=== PATIENT | female | born 1945 | race Caucasian/White ===

== ENCOUNTER → 2016-10-27 | Outpatient (CLI) | payer OTHER ==
[~2016-10-27] MED LIST: ABILIFY 5 MG TAB5 MG PO; ACETAZOLAMIDE250 M1 OR; ADVAIR 250-501 EACH IH; ALBUTEROL INH INH; ALBUTEROL PO; ALBUTEROL2.5 MG/0.1 IH; ALPRAZOLAM 0.50.5 M1 PO; AVELOX 400 MG400 MG PO; CALCIUM 600 +1 EAC1 PO; DUONEB 2.5-0.5 M3 ML IH; FISH OIL 1,2001 EAC4; HYDROCODONE PO; HYDROCODONE-AP1 EAC1 PO; IRON PO; LEVAQUIN 500 M500 MG PO; LEVAQUIN 750 M750 MG PO; LEVOTHROID PO; METFORMIN PO; MULTIPLE VITAM1 EAC3 PO; NEURONTIN 300300 M1 PO; NORCO 5-325 TA1 EACH PO; NOVOLOG100 UNIT/1 SQ; OMEPRAZOLE20 MG PO; PAROXETINE HCL40 MG PO; PREDNISONE 5 MG5 MG PO; PROAIR HFA8.5 GM INH; SIMVASTATIN PO; SIMVASTATIN40 MG PO; TRIAMTERENE-HC1 EAC1; TRIAMTERENE-HC1 EAC1 PO; TRIAMTERENE/HCT1 CA1; ZOFRAN ODT4 MG PO
== END ==
LOC: RAD 15:42
DX: R06.02 Shortness of breath (principal); J44.9 Chronic obstructive pulmonary disease, unspecified

== ENCOUNTER → 2017-10-28 | Outpatient (CLI) | payer OTHER | LOC: RAD 14:13 | DX: J44.9 Chronic obstructive pulmonary disease, unspecified (principal); K44.9 Diaphragmatic hernia without obstruction or gangrene ==

== ENCOUNTER → 2018-12-08 | Outpatient (CLI) | payer OTHER | LOC: CAT 15:21 | DX: M19.012 Primary osteoarthritis, left shoulder (principal); M25.712 Osteophyte, left shoulder ==

== ENCOUNTER 2019-12-05 11:03 | Inpatient (IN) | payer OTHER ==
[~2019-12-05] VITALS: Ht 152.4 cm; Wt 95.5 kg
[2019-12-05 11:05] VITALS: BP 144/97
[2019-12-05 11:47] LABS: BE(vivo) 2.1 mmol/L (-2 to +3); HCO3 27.5 mmol/L (22.0-26.0); PCO2 46.2 mmHg (35.0-45.0); PO2 63.6 mmHg (80.0-100.0); pH 7.393 (7.360-7.450); sO2 92.1 % (92.0-98.0)
[2019-12-05 12:34] LABS: ABSOLUTE NEUTROPHILS 5.9 thou/uL (1.4-8.2); BASOPHILS 0.7 % (0.0-2.0); EOSINOPHILS 3.2 % (0.0-3.0); HEMATOCRIT 38.4 % (37.0-47.0); HEMOGLOBIN 12.3 gm/dL (12.0-15.0); MCH 29.5 pg (26.0-34.0); MCHC 32.1 g/dL (28.0-37.0); MCV 91.8 fL (80.0-100.0); MONOCYTES 4.9 % (1.0-8.0); POLYS 81.2 % (36.0-66.0); RBC 4.18 mil/uL (4.20-5.00); RDW 13.6 % (10.5-14.5); WBC 7.9 thou/uL (4.0-11.0)
[2019-12-05 12:39] VITALS: BP 138/61
[2019-12-05 12:44] LABS: CALCIUM 9.9 mg/dL (8.5-10.1); CREATININE 0.8 mg/dL (0.6-1.0); POTASSIUM 3.8 mmol/L (3.5-5.1)
[2019-12-05 12:55] LABS: ALBUMIN 3.8 g/dL (3.4-5.0); TOTAL BILIRUBIN 0.6 mg/dL (<0.1-1.0); TOTAL PROTEIN 6.8 g/dL (6.4-8.2); TROPONIN-I 0.29 ng/mL (<0.06)
[2019-12-05 12:59] LABS: PLATELET COUNT 115 thou/uL (150-400); PLATELET ESTIMATE NORMAL
--- NOTE | 2019-12-05 14:19 | EKG ---
[facility] [place] [address] ELECTROCARDIOGRAM REPORT Name: JULIANO CARMICHAEL DINORA Room #: [facility]#: [id number] Admission: 12/05/19 Attend Phys: Discharge: Date of : 43 Report #: [id number] THIS REPORT FOR: cc: Chilo Gomez MD, Neal A. MD Couchonnal, Luis F. 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 : 1945 Requested By: Vee Martinez Order Number: [id number] MD: Jean Claude Hinton Measurements Intervals [place] Rate: 79 P: 69 [place]: 157 QRS: 64 QRSD: 85 T: 41 QT: 409 QTc: 469 Interpretive Statements Sinus rhythm Compared to ECG 07/12/2012 14:10:26 Myocardial infarct finding no longer present ST (T wave) deviation no longer present Possible ischemia no longer present Electronically Signed On 12-05-2019 14:18:39 CDT by Jean Claude Hinton [email or web address] <ELECTRONICALLY SIGNED> By: Jean Claude Hinton MD 12/05/19 1418 1136 1136 Jean Claude Hinton MD /EPI
[2019-12-05 14:42] LABS: HEMATOCRIT 38.8 % (37.0-47.0); HEMOGLOBIN 12.7 gm/dL (12.0-15.0); MCH 30.1 pg (26.0-34.0); MCHC 32.8 g/dL (28.0-37.0); MCV 91.8 fL (80.0-100.0); RBC 4.22 mil/uL (4.20-5.00); RDW 13.5 % (10.5-14.5); WBC 7.8 thou/uL (4.0-11.0)
[2019-12-05 15:43] VITALS: BP 161/76
[2019-12-05 15:51] LABS: INR 1.1; PROTIME 10.8 Seconds (9.3-11.4)
[2019-12-05] MEDS ORDERED: LIPITOR40 MG PO (16:15)
[2019-12-05] MEDS ORDERED: UNITHROID25 MCG PO (16:17)
[2019-12-05] MEDS ORDERED: STIOLTO RESPIMAT4 GM INH (16:18)
[2019-12-05] MEDS ORDERED: OMEPRAZOLE20 M2 PO (16:18)
[2019-12-05 18:45] VITALS: BP 145/62
[2019-12-05 19:00] VITALS: BP 188/70
[2019-12-05 23:47] VITALS: BP 144/52
--- NOTE | 2019-12-06 00:30 | NUR ---
ADMITTED TO UNIT. NO SIGNS OF DISTRESS OR COMPLAINTS. ON HEPARIN DRIP PTT DRAWN AT 1800 CRITICAL LEVEL OF GREATER THAN 198.4 PROVIDER DARLING NOTIFIED. HEPARIN PROTOCOL FOLLOWED. ALL VITAL SIGNS WNL. WILL CONTINUE TO MONITOR
--- NOTE | 2019-12-06 01:45 | NUR ---
PT RESTING. PTT REDRAW AT 0000. NEW VALUE THERAPEUTIC (SEE CHART). NEXT REDRAW WILL BE AT 0600. WILL CONTINUE TO MONITOR.
[2019-12-06 03:30] VITALS: BP 123/56
--- NOTE | 2019-12-06 06:49 | NUR ---
PT RESTING IN BED COMFORTABLE. ELEVATED BP AT BEGINNING OF SHIFT HOWEVER IT RESOLVED. NO COMPLAINT OF DISCOMFORT OR PAIN. ON HEPARIN DRIP PROTOCOL FOLLOWED. VITAL SIGN WNL.
[2019-12-06 07:39] VITALS: BP 125/70
--- NOTE | 2019-12-06 09:41 | 2DMMODE ---
[facility] [address] [place] [address] 2 D/M-MODE ECHOCARDIOGRAM Name: JULIANO CARMICHAEL Room #: 356-P ADM IN M.R.#: [id number] Admission: 12/05/19 Attend Phys: Yvan Faulkner MD Discharge: Date of : 43 Report #: [id number] THIS REPORT FOR: cc: Chilo Gomez MD, Neal A. MD Lammoglia, Francisco J. MD ~ APPROVED REPORT Study performed: 12/06/2019 07:46:17 EXAM: Comprehensive 2D, Doppler, and color-flow Echocardiogram Patient Location: Bedside Room #: 356 Status: routine BSA: 1.90 HR: 87 bpm BP: 123/56 mmHg Rhythm: NSR Other Information Study Quality: Adequate Indications COPD Pulmonary Embolism Elevated Troponin Hypertension/HDD 2D Dimensions RVDd: 29.91 mm IVSd: 9.30 (7-11mm) LVOT Diam: 19.36 (18-24mm) LVDd: 49.72 mm PWd: 9.85 (7-11mm) Ascending Ao: 27.14 (22-36mm) LVDs: 35.66 (25-40mm) Aortic Root: 33.19 mm IVC: 18.00 mm Volumes Left Atrial Volume (Systole) Single Plane 4CH: 81.65 mL Single Plane 2CH: 44.90 mL LA ESV Index: 36.00 mL/m2 Aortic Valve AoV Peak Sarath.: 1.68 m/s AO Peak Gr.: 11.29 mmHg LVOT Max P.58 mmHg [facility] [address] [place] [address] 2 D/M-MODE ECHOCARDIOGRAM Name: JULIANO CARMICHAEL Room #: 356-P [facility].#: [id number] Admission: 12/05/19 Attend Phys: Yvan Faulkner, Discharge: Date of : 43 Report #: [id number] LVOT Max V: 1.28 m/s MADELIN Vmax: 2.25 cm2 Mitral Valve E/A Ratio: 0.8 MV Decel. Time: 290.52 ms MV E Max Sarath.: 0.73 m/s MV A Sarath.: 0.92 m/s MV PHT: 84.25 ms IVRT: 147.64 ms Pulmonary Valve PV Peak Sarath.: 1.31 m/s PV Peak Gr.: 6.90 mmHg Pulmonary Vein P Vein S: 0.64 m/s P Vein A: 0.32 m/s P Vein D: 0.37 m/s P Vein A Dur.: 92.3 msec P Vein S/D Ratio: 1.73 Tricuspid Valve TR Peak Sarath.: 3.02 m/s TR Peak Gr.: 36.36 mmHg PA Pressure: 41.00 mmHg Left Ventricle The left ventricle is normal size. There is normal LV segmental wall motion. There is normal left ventricular wall thickness. The left ventricular systolic function is normal. The left ventricular ejection fraction is within the normal range. LVEF is 60-65%. Grade I - abnormal relaxation pattern. Right Ventricle The right ventricle is normal size. The right ventricular systolic function is normal. Fat pad noted on the right ventricular free wall, normal variant. Atria Left atrium is dilated. Right atrium is at the upper limits of normal. Aortic Valve The aortic valve is normal in structure. No aortic regurgitation is present. There is no aortic valvular stenosis. Mitral Valve The mitral valve is normal in structure. Trace mitral regurgitation. [facility] [address] [place] [address] 2 D/M-MODE ECHOCARDIOGRAM Name: JULIANO CARMICHAEL SEWARD Room #: 356-P [facility] IN ..#: [id number] Admission: 12/05/19 Attend Phys: Yvan Faulkner, Discharge: Date of : 43 Report #: [id number] No evidence of mitral valve stenosis. Tricuspid Valve The tricuspid valve is normal in structure. There is trace to mild tricuspid regurgitation. Estimated PAP 41 mmHg. There is mild-moderate pulmonary hypertension. Pulmonic Valve The pulmonary valve is normal in structure. There is no pulmonic valvular regurgitation. Great Vessels The aortic root is normal in size. IVC is normal in size and collapses >50% with inspiration. Pericardium There is no pericardial effusion. <Conclusion> The left ventricle is normal size. LVEF is 60-65%. Left atrium is dilated. Right atrium is at the upper limits of normal. The aortic valve is normal in structure. The mitral valve is normal in structure. Trace mitral regurgitation. The tricuspid valve is normal in structure. There is trace to mild tricuspid regurgitation. Estimated PAP 41 mmHg. There is mild-moderate pulmonary hypertension. The pulmonary valve is normal in structure. There is no pericardial effusion. <ELECTRONICALLY SIGNED> By: Kishore Pacheco MD 12/06/19939 9 9 Kishore Pacheco MD /INF
[2019-12-06 10:50] LABS: HEMATOCRIT 34.1 % (37.0-47.0); HEMOGLOBIN 10.8 gm/dL (12.0-15.0); MCH 29.6 pg (26.0-34.0); MCHC 31.8 g/dL (28.0-37.0); MCV 93.2 fL (80.0-100.0); RBC 3.66 mil/uL (4.20-5.00); RDW 13.7 % (10.5-14.5); WBC 5.4 thou/uL (4.0-11.0)
[2019-12-06 10:59] LABS: CALCIUM 9.2 mg/dL (8.5-10.1); CREATININE 0.8 mg/dL (0.6-1.0); MAGNESIUM 1.9 mg/dL (1.8-2.4); POTASSIUM 3.7 mmol/L (3.5-5.1); TROPONIN-I 0.24 ng/mL (<0.06)
[2019-12-06 11:11] VITALS: BP 99/38
[2019-12-06 15:18] VITALS: BP 106/48
--- NOTE | 2019-12-06 15:36 | NUR ---
ASSUMED CARE APPROX 0700. PT'S HEPARIN GTT HAS REMAINED THERAPEUTIC. NO CHANGE NEEDED. LOW DIASTOLIC PRESSURE REPORTED TO DR. HERRMANN AND A ONE-TIME 500ML NS BOLUS STARTED. BLOOD PRESSURE RECHECKED WITH DR. HERRMANN AT BEDSIDE. DIASTOLIC PRESSURE STILL LOW. DR. HERRMANN AWARE. PT MOST LIKELY TO DISCHARGE TOMORROW PER DR. HERRMANN. PT IS PROGRESSING TOWARDS PLAN OF CARE GOALS.
[2019-12-06 19:55] VITALS: BP 131/51
--- NOTE | 2019-12-07 03:26 | NUR ---
Pt is resting quietly. VSS. Denied pain. Heparin gtt infusing without difficulty left AC. No s/s bleeding noted. Titrating per protocol. No bleeding noted after bolus given. Instructed pt to call nurse or WAISTBAND SETTER LOCKSTITCH prior to getting OOB to BR. bed alarm is on . Call light in reach. No skin breakdownnoted but right earis slightly edematous. Lungs are clear with diminished bases. Nonlabored on 2 LNC.
[2019-12-07 03:55] VITALS: BP 171/110
--- NOTE | 2019-12-07 04:23 | NUR ---
Pt resting quietly. VSS. Denied pain. Up to BR with assistance of one. Lungs diminished unlabored on 2l. No s/s distress.
[2019-12-07 04:30] VITALS: BP 150/70
[2019-12-07 04:33] LABS: ANION GAP < 0 mmol/L (7-16); BUN 17 mg/dL (7-18); CALCIUM 9.1 mg/dL (8.5-10.1); CHLORIDE 105 mmol/L (98-107); CO2 37 mmol/L (21-32); CREATININE 0.9 mg/dL (0.6-1.0); GLUCOSE 111 mg/dL (74-106); MAGNESIUM 1.8 mg/dL (1.8-2.4); POTASSIUM 4.2 mmol/L (3.5-5.1); SODIUM 141 mmol/L (136-145)
[2019-12-07 04:38] LABS: HEMATOCRIT 31.3 % (37.0-47.0); HEMOGLOBIN 10.2 gm/dL (12.0-15.0); MCH 30.3 pg (26.0-34.0); MCHC 32.6 g/dL (28.0-37.0); MCV 93.1 fL (80.0-100.0); RBC 3.37 mil/uL (4.20-5.00); WBC 5.3 thou/uL (4.0-11.0)
--- NOTE | 2019-12-07 06:47 | NUR ---
Titrated heparin gtt per protocol. Ptt 94.1. Held heparin 1 hr then decreased ti 11 units per hour. No s/s bleeding noted. No soa. Pt compliant with fall precautions and ambulating to br with NS.
[2019-12-07 07:51] VITALS: BP 101/40
[2019-12-07 11:13] VITALS: BP 158/69
[2019-12-07] MEDS ORDERED: ELIQUIS5 MG PO (13:41)
--- NOTE | 2019-12-07 15:05 | NUR ---
INITIAL ASSESSMENT/DISCHARGE NOTE: SUZI reviewed chart and spoke with nursing and attending physician. Pt was admitted from home due to PE. Pt was on heparin and will discharge home on Eliquis. Pt is medically stable for discharge home today. SUZI met with pt at bedside. Introduced role of SW. Pt is alert/orientated x 4. Pt reports she lives at home with her spouse. No steps to enter the home and no steps inside. Pt was independent with ADLs prior to admission. SW discussed new script for Eliquis. SW provided pt with Eliquis prescription assistance cards. Pt to take with her to her pharmacy. Pt's family will provide transportation home between 0539-2370 today. SUZI updated nursing. No additional SW needs identified at this time, but is available to assist should needs arise.
[2019-12-07 15:09] VITALS: BP 141/77
[2019-12-07 15:18] VITALS: BP 141/77
--- NOTE | 2019-12-07 16:13 | NUR ---
Assumed care approx 0700 this AM. Pt titrated off of oxygen this afternoon from 2LNC to room air. Heparin gtt dc'd. Order to give scheduled eliquis dose 1 hour after shutting gtt off. Patient's questions answered on eliquis. Discharge orders obtained. Eliquis script and drug info sheet given. Pt educated on importance of eliquis and not missing doses. Pt also educated on what a stroke is. Discharge packet discussed and medicare rights paperwork complete. IV and tele dc'd. Pt riding back home with family this afternoon.
== END 2019-12-07 16:31 | disposition home or self-care (01) | DRG 175 ==
LOC: ER 11:03 → 3W 14:53 → EROBS 14:53 → 3W 18:46 → ENTRNSPT 12-07 16:20 → 3W 12-07 16:31
PROVIDERS: Physician Assistant; ADMIT Internal Medicine
DX: I26.09 Other pulmonary embolism with acute cor pulmonale (principal); J96.20 Acute and chronic respiratory failure, unspecified whether with hypoxia or hypercapnia; J44.9 Chronic obstructive pulmonary disease, unspecified; K21.9 Gastro-esophageal reflux disease without esophagitis; E78.00 Pure hypercholesterolemia, unspecified; E03.9 Hypothyroidism, unspecified; G89.4 Chronic pain syndrome; F32.9 Major depressive disorder, single episode, unspecified; I10 Essential (primary) hypertension; E78.5 Hyperlipidemia, unspecified; N39.41 Urge incontinence; G47.00 Insomnia, unspecified; Z99.81 Dependence on supplemental oxygen; I25.2 Old myocardial infarction; Z87.891 Personal history of nicotine dependence; Z87.01 Personal history of pneumonia (recurrent); Z79.899 Other long term (current) drug therapy
CPT/HCPCS: 10879

== ENCOUNTER 2020-02-23 14:38 | Inpatient (IN) | payer OTHER ==
[~2020-02-23] VITALS: Ht 152.4 cm; Wt 95.3 kg
[~2020-02-23 14:38] MED LIST changes: +ELIQUIS5 MG PO; +LIPITOR40 MG PO; +OMEPRAZOLE20 M2 PO; +STIOLTO RESPIMAT4 GM INH; +UNITHROID25 MCG PO
[2020-02-23 14:41] VITALS: BP 144/66
[2020-02-23 15:49] LABS: ABSOLUTE NEUTROPHILS 4.9 thou/uL (1.4-8.2); BASOPHILS 0.8 % (0.0-2.0); EOSINOPHILS 2.6 % (0.0-3.0); HEMATOCRIT 37.8 % (37.0-47.0); HEMOGLOBIN 12.7 gm/dL (12.0-15.0); LYMPHOCYTES 13.9 % (24.0-44.0); MCH 30.7 pg (26.0-34.0); MCHC 33.5 g/dL (28.0-37.0); MCV 91.5 fL (80.0-100.0); MONOCYTES 6.4 % (1.0-8.0); PLATELET COUNT 238 thou/uL (150-400); POLYS 76.3 % (36.0-66.0); RBC 4.13 mil/uL (4.20-5.00); RDW 13.3 % (10.5-14.5); WBC 6.4 thou/uL (4.0-11.0)
[2020-02-23 16:00] LABS: APTT 25.6 Seconds (24.5-32.8); PROTIME 10.4 Seconds (9.3-11.4)
[2020-02-23 16:07] LABS: ANION GAP 6 mmol/L (7-16); BUN 11 mg/dL (7-18); CALCIUM 9.7 mg/dL (8.5-10.1); CHLORIDE 99 mmol/L (98-107); CO2 33 mmol/L (21-32); CREATININE 0.9 mg/dL (0.6-1.0); GLUCOSE 106 mg/dL (74-106); POTASSIUM 3.6 mmol/L (3.5-5.1); SODIUM 138 mmol/L (136-145)
[2020-02-23 16:12] LABS: ALBUMIN 4.1 g/dL (3.4-5.0); MAGNESIUM 1.6 mg/dL (1.8-2.4); SGOT 19 U/L (15-37); SGPT 19 U/L (30-65); TOTAL BILIRUBIN 0.7 mg/dL (0.2-1.0); TOTAL PROTEIN 7.4 g/dL (6.4-8.2); TROPONIN-I <0.06 ng/mL (<0.06)
[2020-02-23] MEDS ORDERED: TRIAMTERENE/HCT1 CA1 PO (16:54)
[2020-02-23 16:57] VITALS: BP 138/85
[2020-02-23 17:36] VITALS: BP 173/88
[2020-02-23 18:00] VITALS: BP 158/60
--- NOTE | 2020-02-23 19:34 | NUR ---
Received pt from the ER, alert and [id number] x 4, steady on her gait. Has a cane from home that she uses when she goes out, pt did mention she does not need or use it when she is in doors. Admit / dc nurse completed admission requirements and documentation, she endorsed to the night nurse. Orders put in as per telephone from Dr. Tolentino.
[2020-02-23 21:53] VITALS: BP 149/75
[2020-02-24 00:21] VITALS: BP 176/77
--- NOTE | 2020-02-24 08:09 | EKG ---
[facility] [address] [place] [address] ELECTROCARDIOGRAM REPORT Name: JULIANO CARMICHAEL Room #: 459- ADM IN M.R.#: [id number] Admission: 02/23/20 Attend Phys: Chilo Gomez MD Discharge: Date of : 43 Report #: [id number] THIS REPORT FOR: cc: Chilo Gomez MD, Neal A. MD Lundgren, Craig H. 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 : 1945 Requested By: Kamille Lay Order Number: [id number] MD: Jair Ingram Measurements Intervals [place] Rate: 80 P: 58 [place]: 175 QRS: 27 QRSD: 86 T: 30 QT: 393 QTc: 454 Interpretive Statements Sinus rhythm Nonspecific ST and T wave abnormality Compared to ECG 12/05/2019 11:36:44 Nonspecific change in the ST and T wave segments Electronically Signed On 02-24-2020 8:07:57 CDT by Jair Ingram [email or web address] <ELECTRONICALLY SIGNED> By: Jair Ingram MD, [facility] 02/24/20 0807 1522 1522 Jair Ingram MD, [facility] /EPI
--- NOTE | 2020-02-24 08:12 | NUR ---
progress pt admitted to ed for soa vss, up with sba rt treatments ordered pt requesting them. ivf's infusing without difficulty discussed poc and medications with be here in am to evaluate.
--- NOTE | 2020-02-24 08:15 | EKG ---
[facility] [place] [address] ELECTROCARDIOGRAM REPORT Name: JULIANO CARMICHAEL Room #: 459- ADM IN M.R.#: [id number] Admission: 02/23/20 Attend Phys: Chilo Gomez MD Discharge: Date of : 43 Report #: [id number] THIS REPORT FOR: cc: Chilo Gomez MD, Neal A. MD Lundgren,Jair Baldwin MD [facility] ~ THIS REPORT FOR: //name// [facility] Test Date: 2020-02-24 Test Time: 07:52:52 Pat Name: JULIANO CARMICHAEL Department: Room: 459 P Gender: F Damage Adjuster: ANTHONY : 1945 Requested By: Joan Zapata Order Number: [id number] MD: Jair Ingram Measurements Intervals [place] Rate: 74 P: 69 [place]: 191 QRS: 47 QRSD: 90 T: 18 QT: 402 QTc: 446 Interpretive Statements Sinus rhythm Nonspecific ST segment abnormality Compared to ECG 12/05/2019 11:36:44 No significant changes Electronically Signed On 02-24-2020 8:13:59 CDT by Jair Ingram [email or web address] <ELECTRONICALLY SIGNED> By: Jair Ingram MD, [facility] 02/24/20 0813 0752 0752 Jair Ingram MD, [facility] /EPI
[2020-02-24 09:32] VITALS: BP 129/67
--- NOTE | 2020-02-24 12:01 | 2DMMODE ---
[facility] [address] [place] [address] 2 D/M-MODE ECHOCARDIOGRAM Name: JULIANO CARMICHAEL DINORA Room #: 459-P ADM IN M.R.#: [id number] Admission: 02/23/20 Attend Phys: Chilo Gomez MD Discharge: Date of : 43 Report #: [id number] THIS REPORT FOR: cc: Chilo Gomez MD, Neal A. MD Lammoglia, Francisco J. MD ~ APPROVED REPORT Study performed: 02/24/2020 11:02:29 EXAM: Comprehensive 2D, Doppler, and color-flow Echocardiogram Patient Location: Bedside Room #: 45 Status: routine BSA: 1.91 HR: 77 bpm BP: 129/67 mmHg Rhythm: NSR Other Information Study Quality: Adequate Technically limited study due to body habitus. Indications COPD Dyspnea Chest Pain Hypertension/HDD Hx PE (11/2019) 2D Dimensions RVDd: 32.28 mm IVSd: 10.02 (7-11mm) LVOT Diam: 18.92 (18-24mm) LVDd: 47.55 mm PWd: 10.27 (7-11mm) LVDs: 38.06 (25-40mm) Aortic Root: 31.36 mm IVC: 11.00 mm Volumes Left Atrial Volume (Systole) Single Plane 4CH: 83.69 mL Single Plane 2CH: 43.79 mL LA ESV Index: 33.00 mL/m2 [facility] [address] [place] [address] 2 D/M-MODE ECHOCARDIOGRAM Name: JULIANO CARMICHAEL Room #: 459-P ADM IN M.R.#: [id number] Admission: 02/23/20 Attend Phys: Chilo Gomez, Discharge: Date of : 43 Report #: [id number] Aortic Valve AoV Peak Sarath.: 1.66 m/s AO Peak Gr.: 10.99 mmHg LVOT Max P.62 mmHg LVOT Max V: 1.19 m/s MADELIN Vmax: 2.01 cm2 Mitral Valve E/A Ratio: 0.6 MV Decel. Time: 230.57 ms MV E Max Sarath.: 0.60 m/s MV A Sarath.: 0.93 m/s MV PHT: 66.86 ms IVRT: 96.89 ms Pulmonary Valve PV Peak Sarath.: 1.47 m/s PV Peak Gr.: 8.64 mmHg Pulmonary Vein P Vein S: 0.65 m/s P Vein A: 0.31 m/s P Vein D: 0.57 m/s P Vein A Dur.: 96.9 msec P Vein S/D Ratio: 1.14 Tricuspid Valve TR Peak Sarath.: 2.90 m/s RAP Estimate: 5.00 mmHg TR Peak Gr.: 33.63 mmHg PA Pressure: 39.00 mmHg Left Ventricle The left ventricle is normal size. There is normal left ventricular wall thickness. The left ventricular systolic function is normal. The left ventricular ejection fraction is within the normal range. LVEF is 60-65%. Mild diastolic dysfunction is present (impaired relaxation pattern). Right Ventricle The right ventricle is normal size. The right ventricular systolic function is normal. Atria Left atrium is mildly dilated. The right atrium size is normal. Aortic Valve The aortic valve is normal in structure. No aortic regurgitation is present. There is no aortic valvular stenosis. [facility] [place] [address] 2 D/M-MODE ECHOCARDIOGRAM Name: JANYJULIANO DINORA Room #: 459-P [facility] IN M.R.#: [id number] Admission: 02/23/20 Attend Phys: Chilo Gomez, Discharge: Date of : 43 Report #: [id number] Mitral Valve The mitral valve is normal in structure. Trace mitral regurgitation. No evidence of mitral valve stenosis. Tricuspid Valve The tricuspid valve is normal in structure. Trace to mild tricuspid regurgitation. PAP is estimated at 39 mmHg. Pulmonic Valve The pulmonary valve is normal in structure. Trace pulmonic regurgitation. Great Vessels The aortic root is normal in size. IVC is normal in size and collapses >50% with inspiration. Pericardium There is no pericardial effusion. <Conclusion> The left ventricle is normal size. LVEF is 60-65%. The left ventricle is normal size. LVEF is 60-65%. Left atrium is mildly dilated. The aortic valve is normal in structure. The mitral valve is normal in structure. Trace mitral regurgitation. The tricuspid valve is normal in structure. Trace to mild tricuspid regurgitation. PAP is estimated at 39 mmHg. The pulmonary valve is normal in structure. Trace pulmonic regurgitation. There is no pericardial effusion. <ELECTRONICALLY SIGNED> By: Kishore Pacheco MD 02/24/20 1159 1159 1159 Kishore Pacheco MD /INF
--- NOTE | 2020-02-24 13:40 | NUR ---
PT ADMITTED RELATED TO SOA ON EXERTION. CM REVIEWED CHART AND SPOKE WITH CARE TEAM. CM CALLED AND SPOKE WITH PT AT BEDSIDE THIS DAY. PT APPEARED TO BE A&O X4. CM ROLE INTRODUCED. PT INDICATED SHE LIVES IN A HOUSE WITH HER SPOUSE WITH NO STEPS TO ENTER AND NO STEPS INSISIDE. PT INDICATED SHE HAD A CANE FOR USE IN THE COMMUNITY AND HOME O2 THROUGH [employer]. 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 PT INDICATED SHE HAD BEEN INDEPDENT WITH GAIT AND ADLS AND HAS NO HH OR OP HISTORY. PT INDICATED SHE PLANS TO RETURN HOME ONCE MEDICALLY STABLE. PT TO HAVE ECHO AND PULM CONSULT. CM TO FOLLOW INDICATED WITH DC PLANNING, BUT PT DIDN'T ANTICPATE SHE WOULD HAVE ANY NEEDS UPON DC.
[2020-02-24 15:07] VITALS: BP 103/45; BP 103/54
[2020-02-24 19:50] VITALS: BP 90/58
[2020-02-24 19:59] VITALS: BP 107/85
--- NOTE | 2020-02-24 20:03 | NUR ---
Assume pt care this am, VS stable. Pt is steady on her gait, call appropriately. diet and medication are well tolerated well. AWating Dr. ROSARIO. POC followed lilly no signs or verbalizatons of distress noted. Endorsed to the [facility] nurse.
--- NOTE | 2020-02-25 04:36 | NUR ---
ASSUMED PT CARE AROUND 1930. AXOX4. INDEPENDENT WITH ADLs AND CALLS APPROPRIATELY FOR HELP. VSS. NO S/S ACUTE DISTRESS NOTED OR REPORTED AT THIS TIME. WILL CONT TO MONITOR FOR ANY CHANGES IN CONDITION.
[2020-02-25 07:26] VITALS: BP 116/48
--- NOTE | 2020-02-25 10:20 | NUR ---
ORDERS RECEIVED FOR EVAL AND TREAT. OBSERVED Pt AMBULATING BACK TO BED FROM BATHROOM INDEPENDENTLY. SPOKE WITH Pt WHO DENIES ANY ISSUES WITH STRENGTH, BALANCE OR MOBILITY. STATES SHE IS ALREADY GETTING UP WITHOUT DIFFICULTY AND DECLINES A FORMAL P.T. EVAL. Pt APPEARS SAFE FOR HOME WHENEVER MEDICALLY CLEAR
[2020-02-25 15:31] VITALS: BP 144/67
[2020-02-25 19:22] VITALS: BP 142/64
--- NOTE | 2020-02-25 19:32 | NUR ---
Assumed pt care at 7am.Pt up to bathroom with sba.Assessment completed.vss. Pt alert and oriented x4 and very pleasant.Spouse called and updates given. Pt has o2 on most of the time this shift.No verbasl c/o.Will continue to monitor.
--- NOTE | 2020-02-26 05:24 | NUR ---
PATIENT ALERT AND ORIENTED X4. BS MONITORED PER ORDER. COOPERATIVE WITH CARE. 02NC 2L WITH NO SOA NOTED. TALKATIVE AND PLEASANT. DENIES PAIN. RESTING QUIETLY, WILL MONITOR.
[2020-02-26 08:00] VITALS: BP 139/70
--- NOTE | 2020-02-26 16:12 | NUR ---
Assumed pt care at 7am.Pt in bed very upset early this am due to cobbler mckay rearranging her bs table.Service recovery provided.Assessment completed.vss. Dr Faulkner here,no new order noted.Pt eats,voids and ambulated without difficulty.No verbal c/o at present.Will continue to monitor.
[2020-02-26 19:59] VITALS: BP 124/59
--- NOTE | 2020-02-27 03:46 | NUR ---
patient denied pain or discomfort. patient on 2l oxygen no soa or distress noted. patient ambulates with steady gaits in the room. patient is up at justus. patient in bed asleep at this time breathing regular and unlaboured.
[2020-02-27 04:45] LABS: HEMATOCRIT 34.1 % (37.0-47.0); HEMOGLOBIN 11.2 gm/dL (12.0-15.0); MCH 30.5 pg (26.0-34.0); MCHC 32.9 g/dL (28.0-37.0); MCV 92.7 fL (80.0-100.0); RBC 3.67 mil/uL (4.20-5.00); RDW 13.6 % (10.5-14.5); WBC 11.1 thou/uL (4.0-11.0)
[2020-02-27 04:58] LABS: CALCIUM 9.4 mg/dL (8.5-10.1); CREATININE 0.9 mg/dL (0.6-1.0); MAGNESIUM 2.1 mg/dL (1.8-2.4); POTASSIUM 4.4 mmol/L (3.5-5.1)
[2020-02-27] MEDS ORDERED: BENICAR20 MG PO (08:02)
[2020-02-27] MEDS ORDERED: NEURONTIN 300M300 M2 PO (08:02)
[2020-02-27] MEDS ORDERED: PREDNISOLONE 5 M5 M1 PO (08:04)
[2020-02-27] MEDS ORDERED: CEFDINIR300 MG PO (08:04)
[2020-02-27 08:29] VITALS: BP 124/59
[2020-02-27 08:31] VITALS: BP 138/81
[2020-02-27 09:42] VITALS: BP 138/81
--- NOTE | 2020-02-27 11:04 | NUR ---
Assumed pt care this am, VS stable and gait is steady when ambulating in the room. Currently on 2 L of O2 via NC O2 sat in the higher 90's. POC followed with no sign or verbalizations of distress, diet and medications are well tolerated. DC instructions and prescriptions given, IV removed. Pt's joana in security, informed security that her car was parked by a nurse when she entered the ER and steinberg is the the belVERTILASs bag. REquested that security assists in locating her car. Pt is now dc.
== END 2020-02-27 11:54 | disposition home or self-care (01) | DRG 190 ==
LOC: ER 14:38 → 4W 17:09 → EROBS 17:09 → 4W 17:36
PROVIDERS: Internal Medicine; Physician Assistant; ADMIT Family Medicine
DX: J44.1 Chronic obstructive pulmonary disease with (acute) exacerbation (principal); J96.01 Acute respiratory failure with hypoxia; Z68.41 Body mass index [BMI] 40.0-44.9, adult; E66.01 Morbid (severe) obesity due to excess calories; M54.16 Radiculopathy, lumbar region; E78.00 Pure hypercholesterolemia, unspecified; E03.9 Hypothyroidism, unspecified; G89.4 Chronic pain syndrome; G62.9 Polyneuropathy, unspecified; E78.5 Hyperlipidemia, unspecified; K21.9 Gastro-esophageal reflux disease without esophagitis; I10 Essential (primary) hypertension; R73.03 Prediabetes; F32.9 Major depressive disorder, single episode, unspecified; Z79.899 Other long term (current) drug therapy; Z79.51 Long term (current) use of inhaled steroids; Z87.891 Personal history of nicotine dependence; Z79.01 Long term (current) use of anticoagulants; Z86.711 Personal history of pulmonary embolism; Z86.718 Personal history of other venous thrombosis and embolism
CPT/HCPCS: 10045

== ENCOUNTER 2020-08-28 15:16 | Inpatient (IN) | payer OTHER ==
[~2020-08-28] VITALS: Ht 152.4 cm; Wt 97.1 kg
[~2020-08-28 15:16] MED LIST changes: +BENICAR20 MG PO; +CEFDINIR300 MG PO; +NEURONTIN 300M300 M2 PO; +PREDNISOLONE 5 M5 M1 PO; +TRIAMTERENE/HCT1 CA1 PO
[2020-08-28 15:17] VITALS: BP 128/97
[2020-08-28 16:20] LABS: ABSOLUTE NEUTROPHILS 3.5 thou/uL (1.4-8.2); BASOPHILS 0.4 % (0.0-2.0); EOSINOPHILS 1.2 % (0.0-3.0); HEMATOCRIT 34.1 % (37.0-47.0); LYMPHOCYTES 7.8 % (24.0-44.0); MCH 29.2 pg (26.0-34.0); MCHC 32.3 g/dL (28.0-37.0); MCV 90.3 fL (80.0-100.0); MONOCYTES 5.4 % (1.0-8.0); PLATELET COUNT 220 thou/uL (150-400); POLYS 85.2 % (36.0-66.0); RBC 3.78 mil/uL (4.20-5.00); RDW 14.5 % (10.5-14.5); WBC 4.1 thou/uL (4.0-11.0)
[2020-08-28 16:37] LABS: ALBUMIN 3.4 g/dL (3.4-5.0); POTASSIUM 3.8 mmol/L (3.5-5.1); TOTAL BILIRUBIN 0.7 mg/dL (0.2-1.0)
[2020-08-28] MEDS ORDERED: ELIQUIS5 MG PO (20:25)
[2020-08-28 21:06] LABS: CHOLESTEROL 172 mg/dL (<200); HDL CHOLESTEROL 56 mg/dL (>40); LDL CHOLESTEROL 96 mg/dL (<100); TC:HDL 3.1 Ratio (Not establshd); TRIGLYCERIDE 104 mg/dL (<150); VLDL 21 mg/dL (<40)
[2020-08-28 21:08] LABS: SERUM ASSESSMENT Clear
[2020-08-28 23:29] VITALS: BP 133/71
--- NOTE | 2020-08-28 23:40 | NUR ---
TRIED TO CALL REPORT PT UNAVAILABLE.
[2020-08-29 00:41] VITALS: BP 147/82
[2020-08-29] MEDS ORDERED: TRELEGY ELLIPT1 EACH INH ×2 (01:27→01:28)
[2020-08-29] MEDS ORDERED: TYLENOL EXTRA500 MG PO (01:30)
[2020-08-29 04:33] VITALS: BP 127/52
[2020-08-29 06:11] LABS: HEMATOCRIT 29.3 % (37.0-47.0); HEMOGLOBIN 9.5 gm/dL (12.0-15.0); MCH 29.2 pg (26.0-34.0); MCHC 32.4 g/dL (28.0-37.0); MCV 90.1 fL (80.0-100.0); RBC 3.25 mil/uL (4.20-5.00); RDW 14.1 % (10.5-14.5); WBC 3.4 thou/uL (4.0-11.0)
--- NOTE | 2020-08-29 06:23 | NUR ---
Arrived from ER around 0030. Adm hx,assessment and med rec verified and completed. O2 at 3L/NC with O2 sat in the mid 90's. Reported shortness of breath with exertion. Cont. on enhanced precaution , afebrile. Tylenol given for neck and shoulder pain with some relief. She slept some.
[2020-08-29 06:25] LABS: CALCIUM 9.3 mg/dL (8.5-10.1); POTASSIUM 3.5 mmol/L (3.5-5.1)
[2020-08-29 07:48] VITALS: BP 138/74
--- NOTE | 2020-08-29 09:13 | NUR ---
ASSESSMENT: CM REVIEWED CHART AND SPOKE WITH PATIENT VIA PHONE. PT IS ALERT AND ORIENTED X4. PT IS ENHANCED ISOLATION DUE TO TESTING POSITIVE FOR COVID 19. PT REPORTS LIVING IN A HOUSE WITH HER . 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 PT REPORTS THEY HAVE NO STEPS TO ENTER THE HOME OR ONCE INSIDE. PT REPORTS SHE USES A CANE FOR WHEN SHE LEAVES THE HOME BUT IS NORMALLY INDEPENDENT WITH ADLS AND AMBULATION. PT WEARS 3L OXYGEN AT BEDTIME BUT REPORTS WEARING IT ACIDIZER WATER WELL AT HOME THE PAST FEW DAYS DUE TO SOB. PT REPORTS SHE HAS NOT HAD HOME HEALTH IN THE PAST OR BEEN TO A SNF THAT SHE IS AWARE OF. CM DISCUSSED ROLE. PT IS HOPEFUL SHE WILL PROGRESS AND HAVE NO NEEDS AT DISCHARGE. PT IS CURRENTLY ON IV ANBX, IV STEROIDS AND BEING STARTED ON REMDESIVIR. CM WILL CONTINUE TO FOLLOW TO ASSIST NEEDED.
[2020-08-29 11:22] VITALS: BP 120/60
[2020-08-29 15:24] VITALS: BP 112/58
--- NOTE | 2020-08-29 17:34 | NUR ---
assumed care of pt at 0700. pt alert and oriented, pleasant, in no acute distress. coarse lung sounds on 3-4L NC. vitals stable. iv abx infusing per order. calls out appropriately. positive blood culture relayued to physician.
[2020-08-29 19:47] VITALS: BP 127/78
[2020-08-30 03:25] VITALS: BP 141/58
[2020-08-30 05:43] LABS: ABSOLUTE NEUTROPHILS 9.2 thou/uL (1.4-8.2); BASOPHILS 0.1 % (0.0-2.0); HEMATOCRIT 27.1 % (37.0-47.0); LYMPHOCYTES 3.8 % (24.0-44.0); MCH 29.6 pg (26.0-34.0); MCHC 33.1 g/dL (28.0-37.0); MCV 89.4 fL (80.0-100.0); PLATELET COUNT 254 thou/uL (150-400); POLYS 90.1 % (36.0-66.0); RBC 3.03 mil/uL (4.20-5.00); RDW 14.1 % (10.5-14.5); WBC 10.2 thou/uL (4.0-11.0)
[2020-08-30 06:04] LABS: DIRECT BILIRUBIN < 0.1 mg/dL (<0.1-0.2); SGOT 38 U/L (15-37); SGPT 26 U/L (30-65); TOTAL BILIRUBIN 0.2 mg/dL (0.2-1.0)
--- NOTE | 2020-08-30 06:11 | NUR ---
Pt. stated she didn't sleep much. She requested tylenol last night for neck and shoulder pain with good relief and requested tylenol for headache this am. Maintaining O2 sat in the low to mid 90's on 3L/NC. She verbalized she does get short of breath with exertion. Up to bathroom with steady gait using her cane. IV on right AC got pulled out last night. New IV placed on right FA.
[2020-08-30 06:24] LABS: CALCIUM 9.1 mg/dL (8.5-10.1); CREATININE 1.1 mg/dL (0.6-1.0); POTASSIUM 3.8 mmol/L (3.5-5.1)
[2020-08-30 07:18] VITALS: BP 134/63
[2020-08-30 11:28] VITALS: BP 133/61
--- NOTE | 2020-08-30 14:52 | NUR ---
SUZI reviewed chart and spoke with nursing. Pt remains in Enhanced Isolation due to COVID-19. Pt is afebrile and on 3L of O2. Pt is on IV abx and IV steroids. Completing course of Remdesivir. SUZI placed call to pt's room. No answer. Plan is for pt to discharge home when medically stable. SUZI is following to assist as needed with discharge planning.
[2020-08-30 15:32] VITALS: BP 112/51
[2020-08-30 19:27] VITALS: BP 137/65
--- NOTE | 2020-08-30 22:58 | NUR ---
PT TALKING ON PHONE WITH FAMILY, WATCHING TV. O2 PER NC. PT SOA WHEN AMBULATING. IV ANTIBIOTICS. BLE EDEMA. LUNGS WITH WHEEZES AND COUGH. PT DECLINED HS SNACK. PLEASANT ANXIOUS, CONCERNS REGARDING HUSBANDS HEALTH AND GRANDCHILDREN.
[2020-08-31 03:23] VITALS: BP 121/51
[2020-08-31 04:47] LABS: ALBUMIN 2.8 g/dL (3.4-5.0); CREATININE 0.9 mg/dL (0.6-1.0); DIRECT BILIRUBIN < 0.1 mg/dL (<0.1-0.2); SGOT 20 U/L (15-37); SGPT 25 U/L (30-65); TOTAL BILIRUBIN 0.2 mg/dL (0.2-1.0); TOTAL PROTEIN 5.4 g/dL (6.4-8.2)
[2020-08-31 08:00] VITALS: BP 139/84
[2020-08-31 08:04] VITALS: BP 139/84
[2020-08-31] MEDS ORDERED: CEFDINIR300 MG PO (12:53)
[2020-08-31] MEDS ORDERED: PREDNISONE 5 MG5 M1 PO (12:53)
[2020-08-31 13:36] VITALS: BP 139/84
--- NOTE | 2020-08-31 15:40 | NUR ---
DISCHARGE NOTE: SW reviewed chart and spoke with nursing and attending physician. Pt is medically stable for discharge home today. Pt discharged home prior to SW call. Pt has home O2 in place and denied having any discharge needs. Pt had transportation home. No additional SW needs identiifed at this time, but is available to assist should needs arise.
--- NOTE | 2020-08-31 16:13 | NUR ---
PATIENT DISCHARGED HOME VIA PRIVATE TRANSPORT. SHE WAS IN GOOD SPIRITS. PLEASANT WITH CARE.
== END 2020-08-31 16:09 | disposition home or self-care (01) | DRG 177 ==
LOC: ER 15:16 → EROBS 19:31 → 3W 19:31
PROVIDERS: Emergency Medicine; Nurse Practitioner Family; ADMIT Hospitalist; ATTEND Family Medicine
PROC: XW033E5 Introduction of Remdesivir Anti-infective into Peripheral Vein, Percutaneous Approach, New Technology Group 5 (ICD-10-PCS; principal; 2020-08-29)
DX: U07.1 COVID-19 (principal); J96.21 Acute and chronic respiratory failure with hypoxia; J12.89 Other viral pneumonia; J44.0 Chronic obstructive pulmonary disease with (acute) lower respiratory infection; E78.00 Pure hypercholesterolemia, unspecified; E03.9 Hypothyroidism, unspecified; G89.4 Chronic pain syndrome; F32.9 Major depressive disorder, single episode, unspecified; K21.9 Gastro-esophageal reflux disease without esophagitis; E78.5 Hyperlipidemia, unspecified; M54.9 Dorsalgia, unspecified; R73.03 Prediabetes; Z87.891 Personal history of nicotine dependence; Z86.711 Personal history of pulmonary embolism; Z23 Encounter for immunization; Z79.899 Other long term (current) drug therapy
CPT/HCPCS: 10879

== ENCOUNTER 2021-10-23 11:14 | Emergency (ER) | payer OTHER ==
[~2021-10-23] VITALS: Ht 152.4 cm; Wt 99.8 kg
[~2021-10-23 11:14] MED LIST changes: +PREDNISONE 5 MG5 M1 PO; +TRELEGY ELLIPT1 EACH INH; +TYLENOL EXTRA500 MG PO
[2021-10-23 11:47] LABS: ABSOLUTE NEUTROPHILS 5.6 thou/uL (1.4-8.2); BASOPHILS 0.5 % (0.0-2.0); EOSINOPHILS 3.8 % (0.0-3.0); HEMOGLOBIN 10.2 gm/dL (12.0-15.0); LYMPHOCYTES 3.7 % (24.0-44.0); MCH 25.5 pg (26.0-34.0); MCV 82.3 fL (80.0-100.0); MONOCYTES 7.7 % (1.0-8.0); PLATELET COUNT 220 thou/uL (150-400); POLYS 84.3 % (36.0-66.0); RBC 4.01 mil/uL (4.20-5.00); RDW 15.6 % (10.5-14.5); WBC 6.6 thou/uL (4.0-11.0)
[2021-10-23 12:11] LABS: CALCIUM 9.3 mg/dL (8.5-10.1); CREATININE 0.7 mg/dL (0.6-1.0); POTASSIUM 3.9 mmol/L (3.5-5.1)
[2021-10-23 12:21] LABS: ALBUMIN 3.9 g/dL (3.4-5.0); TOTAL BILIRUBIN 0.5 mg/dL (0.2-1.0); TOTAL PROTEIN 6.6 g/dL (6.4-8.2)
--- NOTE | 2021-10-23 13:22 | EKG ---
[address] [address] ELECTROCARDIOGRAM REPORT Name: JULIANO CARMICHAEL DINORA 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
[2021-10-23 15:07] VITALS: BP 128/72
== END 2021-10-23 15:08 | disposition home or self-care (01) ==
LOC: ER 11:14
PROVIDERS: Physician Assistant
DX: D64.9 Anemia, unspecified (principal); Z20.822 Contact with and (suspected) exposure to COVID-19; R07.89 Other chest pain; R06.02 Shortness of breath; J44.9 Chronic obstructive pulmonary disease, unspecified; E78.00 Pure hypercholesterolemia, unspecified; E03.9 Hypothyroidism, unspecified; F32.9 Major depressive disorder, single episode, unspecified; K21.9 Gastro-esophageal reflux disease without esophagitis; I10 Essential (primary) hypertension; Z79.899 Other long term (current) drug therapy; Z87.891 Personal history of nicotine dependence